=== PATIENT | female | born 1995 | race Caucasian/White ===

== ENCOUNTER → 2019-01-11 | Outpatient (CLI) | payer BC, SELFPAY ==
--- NOTE | 2019-01-11 15:43 | MRI_ITS ---
STUDY: MRI THORACIC SPINE WITHOUT CONTRAST REASON FOR EXAM: Female, 23 years old. Leg numbness and muscle weakness with urinary retention TECHNIQUE: Standardized fat and water weighted pulse sequences were obtained in the sagittal and axial planes. COMPARISON: None. FINDINGS: Normal kyphosis of the thoracic spine. There is no substantial scoliosis. T1-2, T2-3, T3-4, T4-5, T5-6, T6-7, T7-8, T8-9, T9-10, T10-11, T11-12: Normal endplates. Normal disc hydration, heights and morphology of the corresponding intervertebral discs. Normal central canal and intervertebral neural foramina at the corresponding levels. Normal visualized thoracic cord. Normal conus medullaris that terminates at T12-L1 The soft tissue structures are unremarkable. MRI/Spine Thoracic (Routine) IMPRESSION: Normal unenhanced MRI examination of the thoracic spine. Incidental finding of possible syrinx within the cervical cord best visualized on the sagittal STIR imaging sequence. Would recommend MRI of the cervical spine for further evaluation Electronically Signed: Adria Flannery MD at 17:10 EDT , Service support ,
--- NOTE | 2019-01-11 15:44 | MRI_ITS ---
STUDY: MRI LUMBAR SPINE WITHOUT CONTRAST REASON FOR EXAM: Female, 23 years old. Urinary retention, muscle weakness TECHNIQUE: Standardized fat and water weighted pulse sequences were obtained in the sagittal and axial planes. COMPARISON: None FINDINGS: T12-L1: There is Schmorl's node inferior endplate of T12.. Normal disc height, hydration and morphology. Normal bilateral facet joints. Normal central canal and bilateral lateral recesses. Normal bilateral intervertebral neural foramina. Normal lumbar lordosis. There is no substantial scoliosis. Normal conus medullaris that terminates at the L1-2: There is Schmorl's node inferior endplate of L1.. Normal disc height, hydration and morphology. Normal bilateral facet joints. Normal central canal and bilateral lateral recesses. Normal bilateral intervertebral neural foramina. L2-3: There is mild Schmorl's node superior endplate of L3 Normal disc height, hydration and morphology. Normal bilateral facet joints. Normal central canal and bilateral lateral recesses. Normal bilateral intervertebral neural foramina. L3-4: Normal endplates. Normal disc height, hydration and morphology. Normal bilateral facet joints. Normal central canal and bilateral lateral recesses. Normal bilateral intervertebral neural foramina. L4-5: Normal endplates. Normal disc height, hydration and morphology. Normal bilateral facet joints. Normal central canal and bilateral lateral recesses. Normal bilateral intervertebral neural foramina. L5-S1: Normal endplates. Normal disc height, hydration and morphology. Normal bilateral facet joints. Normal central canal and bilateral lateral recesses. Normal bilateral intervertebral neural foramina. Normal visualized sacral ala. Normal visualized paraspinous soft tissue structures. MRI/Spine Lumbar (Routine) IMPRESSION: No acute findings, no disc protrusion, central canal or foraminal stenosis Mild multilevel Schmorl's nodes Electronically Signed: Hector Soto, at 23:44 EDT Tel , Service support ,
== END | disposition home or self-care (01) ==
LOC: MRI 15:28
PROVIDERS: Referring Provider Urology; Visit Provider Urology
DX: R20.0 Anesthesia of skin (principal); R33.9 Retention of urine, unspecified; K59.00 Constipation, unspecified; M62.81 Muscle weakness (generalized)
CPT/HCPCS: 72146; 72148

== ENCOUNTER → 2019-01-13 | Outpatient (CLI) | payer BC, SELFPAY ==
[2019-01-13 12:40] LABS: Erythrocyte Sedimentation Rate 18 mm/hr (0-20)
[2019-01-13 13:08] LABS: ALB/GLOB Ratio 1.3 RATIO (0.9-2.4); AST(SGOT) 9 U/L (15-37); Alanine Aminotransfer ALT/SGPT 11 U/L (13-56); Albumin, Serum 4.7 g/dL (3.2-5.0); Alkaline Phosphatase 60 U/L (45-117); Anion Gap 5 (5-15); BUN 13 mg/dL (7-18); BUN/Creat Ratio 20.7 RATIO (10-20); CPK Total, Creatine Kinase 69 U/L (26-192); Calcium,Total 9.6 mg/dL (8.5-10.1); Chloride 106 mmol/L (98-107); Creatinine, Serum 0.63 mg/dL (0.55-1.02); EST Glomerular Filtration Rate 125 mL/min (>60); Est Glom Filt Rate - Afr Amer 151 mL/min (>60); Globulin 3.5 g/dL (2.2-4.2); Glucose 103 mg/dL (74-106); Potassium 3.9 mmol/L (3.5-5.1); Protein, Total 8.2 g/dL (6.4-8.2); Sodium Level 138 mmol/L (136-145); Thyroid Stim Hormone (TSH) 1.19 uIU/mL (0.358-3.74)
[2019-01-14 15:36] LABS: ANTINUCLEAR ANTIBODIES DIRECT Negative (Negative)
[2019-01-19 00:09] LABS: Lyme IgG P18 Ab Present (.); Lyme IgG P23 Ab Absent (.); Lyme IgG P28 Ab Present (.); Lyme IgG P30 Ab Absent (.); Lyme IgG P39 Ab Present (.); Lyme IgG P41 Ab Present (.); Lyme IgG P45 Ab Present (.); Lyme IgG P58 Ab Present (.); Lyme IgG P66 Ab Absent (.); Lyme IgG P93 Ab Absent (.); Lyme IgM P23 Ab Absent (.); Lyme IgM P39 Ab Absent (.); Lyme IgM P41 Ab Present (.)
[2019-01-19 16:45] LABS: Lyme IgG WB Interpretation Positive (.); Lyme IgM WB Interpretation Negative (.); West Nile Virus, IgG Negative (Negative); West Nile Virus, IgM Negative (Negative)
== END | disposition home or self-care (01) ==
PROVIDERS: Referring Provider Psychiatry & Neurology Neurology; Visit Provider Psychiatry & Neurology Neurology
DX: M79.606 Pain in leg, unspecified (principal); R51 Headache; M54.2 Cervicalgia; R33.9 Retention of urine, unspecified
CPT/HCPCS: 36415; 80053; 82550; 84443; 85652; 86038; 86617; 86788; 86789